=== PATIENT | female | born 1980 | race Caucasian/White ===

== ENCOUNTER 2020-02-27 18:42 | Emergency (ER) | payer OTHER, SELFPAY ==
[~2020-02-27] VITALS: Ht 162.6 cm; Wt 65.5 kg
[2020-02-27 18:43] VITALS: BP 149/88
--- NOTE | 2020-02-27 19:08 | NUR ---
Pt alert and resting on gurney. Pt in gown and placed on pulse ox/HR monitor. Pt reports she lifts heavy items frequently at work and while lifting an item today she felt a strong stomach cramp and noticed that her known bump abover her belly button was larger in size. Pt now reports bump as reduced in size.
--- NOTE | 2020-02-27 19:32 | NUR ---
Pt d/c'd to home care. Pt alert, oriented and ambulatory. NAD. Pt educated on home care, OTC meds and follow-up. Pt JAS. Pt ambulated out of ER.
== END 2020-02-27 19:34 | disposition home or self-care (01) ==
LOC: ED 19:25
DX: K42.9 Umbilical hernia without obstruction or gangrene (principal)
CPT/HCPCS: 99281